=== PATIENT | male | born 1980 | race American Indian/Alaskan Native ===

== ENCOUNTER 2016-05-03 04:22 | Emergency (ER) | payer SELFPAY ==
[2016-05-03] MEDS ORDERED: NACL 0.9% 1000 ML 1,000 ML IV ONE (05:01)
[2016-05-03] MEDS ORDERED: DIPRIVAN 10 MG/ML IV ONE ×3 (05:01→06:00)
[2016-05-03] MEDS ORDERED: DIPRIVAN 10 MG/ML 1,000 MG/100 ML BOTTLE IV ONE (05:02)
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
[2016-05-03 06:25] VITALS: BP 125/75
--- NOTE | 2016-05-03 09:45 | XRay Report ---
Left shoulder single view: History: Postreduction. Findings: There is normal alignment noted of the humeral head with glenoid. A.c. joint grossly appears unremarkable. Ossification is noted at the superior aspect of distal end of the clavicle probably related to old injury. Impression: Stable alignment. No acute fracture.
--- NOTE | 2016-05-03 09:46 | XRay Report ---
Left shoulder single view: History: Injury. Next Findings: There is anterior dislocation noted of left shoulder with humeral head lying anteroinferior to the glenoid. No fracture. Impression: Anterior shoulder dislocation.
== END 2016-05-03 06:36 | disposition home or self-care (01) ==
LOC: ED 04:22
DX: S43.005A Unspecified dislocation of left shoulder joint, initial encounter (principal); F17.200 Nicotine dependence, unspecified, uncomplicated; X58.XXXA Exposure to other specified factors, initial encounter; Y93.89 Activity, other specified; Y99.9 Unspecified external cause status; Y92.89 Other specified places as the place of occurrence of the external cause
CPT/HCPCS: 23655; 73020; 73030; 96361; 96374; 99285; J2704; J7030

== ENCOUNTER 2016-05-11 06:47 | Emergency (ER) | payer OTHER ==
[2016-05-11] MEDS ORDERED: AMIDATE IV ONE (08:11)
[2016-05-11] MEDS ORDERED: ZOFRAN IV PRN (08:13)
[2016-05-11] MEDS ORDERED: SUBLIMAZE IV PRN (08:13)
[2016-05-11] MEDS ORDERED: TORADOL IV ONE (08:13)
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
--- NOTE | 2016-05-11 09:01 | XRay Report ---
Left shoulder single view: History: Post reduction. Findings: There is satisfactory alignment noted of humeral head with the glenoid. No dislocation or fracture. Impression: No evidence of acute fracture.
--- NOTE | 2016-05-11 09:11 | XRay Report ---
Left shoulder single view: History: Left shoulder dislocation. Findings: Anterior dislocation noted at left shoulder. The humeral head is anteroinferior to the glenoid . No fracture. Impression: Anterior dislocation left shoulder. Impression
[2016-05-11] MEDS ORDERED: NORVASC ONE (09:31)
[2016-05-11] MEDS ORDERED: NORVASC PO ONE (09:34)
[2016-05-11 09:48] VITALS: BP 155/104
== END 2016-05-11 09:49 | disposition home or self-care (01) ==
LOC: ED 06:47
DX: S43.015A Anterior dislocation of left humerus, initial encounter (principal); F17.210 Nicotine dependence, cigarettes, uncomplicated; X58.XXXA Exposure to other specified factors, initial encounter; Y93.89 Activity, other specified; Y99.9 Unspecified external cause status; Y92.89 Other specified places as the place of occurrence of the external cause
CPT/HCPCS: 23655; 73020; 73030; 96374; 96375; 99284; J1885; J2405; J3010

== ENCOUNTER 2016-08-30 18:12 | Emergency (ER) | payer SELFPAY ==
[2016-08-30 18:47] VITALS: BP 130/91
--- NOTE | 2016-08-30 21:45 | Emergency Department Report ---
ED General Adult HPI - General Chief complaint: Eye Problems Stated complaint: RT EYE PAIN/ RED Time Seen by Provider: 08/30/16 21:12 Source: patient Mode of arrival: Ambulatory Limitations: No Limitations - History of Present Illness Initial comments: Patient comes into the ER today with complaints of right eye irritation and redness since yesterday. Patient hilariahe is been having a lot of sinus congestion on the right side as well for the past 3-4 days. Patient states that he did take some [id number]-rsx-[id number] sinus medicine and states that it did help with the pressure in his head and his head no longer hurts. Patient denies any injury to his eye. Denies any foreign body sensation. - Related Data Previous Rx's Medication Instructions Recorded Last Taken Type Amoxicillin 1,000 mg PO BID #40 capsule 08/30/16 Unknown Rx Polymyxin B Sulf/Trimethoprim 2 drop OP TID #10 ml 08/30/16 Unknown Rx [Polytrim Eye Drops [id number]/0.1%] predniSONE [Deltasone] 60 mg PO QDAY #15 tab 08/30/16 Unknown Rx Allergies Allergy/AdvReac Type Severity Reaction Status Date / Time No Known Allergies Allergy Verified 08/30/16 18:40 ED Review of Systems ROS: Stated complaint: RT EYE PAIN/ RED Other details as noted in HPI Constitutional: denies: chills, fever Eyes: eye pain, eye discharge. denies: vision change ENT: congestion. denies: ear pain, throat pain, dental pain, hearing loss, epistaxis Respiratory: denies: cough, shortness of breath, wheezing Cardiovascular: denies: chest pain, palpitations Endocrine: no symptoms reported Gastrointestinal: denies: abdominal pain, nausea, diarrhea Genitourinary: denies: urgency, dysuria Musculoskeletal: denies: back pain, joint swelling, arthralgia Skin: denies: rash, lesions Neurological: denies: headache, weakness, paresthesias Psychiatric: denies: anxiety, depression Hematological/Lymphatic: denies: easy bleeding, easy bruising ED Past Medical Hx - Past Medical History Additional medical history: Shoulder dislocation with reduction - Surgical History Hx Appendectomy: Yes - Social History Smoking Status: Current Every Day Smoker Substance Use Type: Alcohol - Medications Home Medications: Home Medications Medication Instructions Recorded Confirmed Last Taken Type Amoxicillin 1,000 mg PO BID #40 capsule 08/30/16 Unknown Rx Polymyxin B Sulf/Trimethoprim 2 drop OP TID #10 ml 08/30/16 Unknown Rx [Polytrim Eye Drops [id number]/0.1%] predniSONE [Deltasone] 60 mg PO QDAY #15 tab 08/30/16 Unknown Rx ED Physical Exam - General Limitations: No Limitations General appearance: alert, in no apparent distress - Head Head exam: Present: atraumatic, normocephalic - Eye Eye exam: Present: PERRL, EOMI, conjunctival injection (right eye). Absent: periorbital swelling, periorbital tenderness Pupils: Present: normal accommodation - ENT ENT exam: Present: normal orophraynx, mucous membranes moist, TM's normal bilaterally, normal external ear exam, other (right greater than left nasal mucosa redness and turbinate swelling) - Neck Neck exam: Present: normal inspection. Absent: tenderness, full ROM, lymphadenopathy - Respiratory Respiratory exam: Present: normal lung sounds bilaterally. Absent: respiratory distress, chest wall tenderness, decreased breath sounds - Cardiovascular Cardiovascular Exam: Present: regular rate, normal rhythm, normal heart sounds. Absent: systolic murmur, diastolic murmur, rubs, gallop - GI/Abdominal GI/Abdominal exam: Present: soft, normal bowel sounds - Rectal Rectal exam: Present: deferred - Extremities Exam Extremities exam: Present: normal inspection, normal capillary refill. Absent: pedal edema - Back Exam Back exam: Present: normal inspection - Neurological Exam Neurological exam: Present: alert, oriented X3, CN II-XII intact - Psychiatric Psychiatric exam: Present: normal affect, normal mood - Skin Skin exam: Present: warm, dry, intact, normal color. Absent: rash ED Course Vital Signs 08/30/16 18:41 Temperature 99.0 F Pulse Rate 84 Respiratory 17 Rate Blood Pressure 130/91 O2 Sat by Pulse 98 Oximetry ED Medical Decision Making - Medical Decision Making Patient is nontoxic and hemodynamically stable. No foreign bodies visualized on patient's eye exam. I believe patient originally started with a sinus infection that has settled into his right eye. I will start patient on eye drops accordingly. Patient is in agreement with treatment plan patient stable for discharge. Critical care attestation.: If time is entered above; I have spent that time in minutes in the direct care of this critically ill patient, excluding procedure time. ED Disposition Clinical Impression: Conjunctivitis, Sinusitis Disposition: DC- TO HOME OR SELFCARE Is pt being admited?: No Does the pt Need Aspirin: No Condition: Good Instructions: Conjunctivitis (ED), Sinusitis (ED) Prescriptions: Amoxicillin 1,000 mg PO BID #40 capsule Polymyxin B Sulf/Trimethoprim [Polytrim Eye Drops [id number]/0.1%] 2 drop OP TID #10 ml predniSONE [Deltasone] 60 mg PO QDAY #15 tab Referrals: PRIMARY CARE, [Primary Care Provider] - 3-5 Days Time of Disposition: 21:46
== END 2016-08-30 21:51 | disposition home or self-care (01) ==
LOC: ED 18:12
DX: J32.9 Chronic sinusitis, unspecified (principal); H10.9 Unspecified conjunctivitis; F17.200 Nicotine dependence, unspecified, uncomplicated

== ENCOUNTER 2018-05-16 10:17 | Emergency (ER) | payer OTHER ==
--- NOTE | 2018-05-16 12:35 | Emergency Department Report ---
ED General Adult HPI - General Chief complaint: Eye Problems Stated complaint: LT EYE SWOLLEN/PAIN Time Seen by Provider: 05/16/18 12:27 Source: patient Mode of arrival: Ambulatory Limitations: No Limitations - History of Present Illness Initial comments: Patient is 37-year-old male past medical history of sinus infection who presents with eye pain meds been going on for the last 2 days. He states that this always occurs when he has sinus infection. He states that his nose and that he will have left eye pain and redness. Patient states that his eye pain is an 8/10 it is an achy type of pain light makes it worse and darkness makes it better. Severity scale (0 -10): 4 - Related Data Previous Rx's Medication Instructions Recorded Last Taken Type Polymyxin B Sulf/Trimethoprim 2 drop OP TID #10 ml 08/30/16 Unknown Rx [Polytrim Eye Drops [id number]/0.1%] predniSONE [Deltasone] 60 mg PO QDAY #15 tab 08/30/16 Unknown Rx Amoxicillin 1,000 mg PO BID #40 capsule 05/16/18 Unknown Rx Olopatadine HCl [Pataday] 2.5 ml OP Q6H #1 bottle 05/16/18 Unknown Rx Oxymetazoline 0.05% [Afrin] 2 spray NS Q6H #1 bottle 05/16/18 Unknown Rx Allergies Allergy/AdvReac Type Severity Reaction Status Date / Time No Known Allergies Allergy Verified 08/30/16 18:40 ED Review of Systems ROS: Stated complaint: LT EYE SWOLLEN/PAIN Other details as noted in HPI Constitutional: denies: chills, fever Eyes: eye pain. denies: eye discharge, vision change ENT: denies: ear pain, throat pain Respiratory: denies: cough, shortness of breath, wheezing Cardiovascular: denies: chest pain, palpitations Endocrine: no symptoms reported Gastrointestinal: denies: abdominal pain, nausea, diarrhea Genitourinary: denies: urgency, dysuria Musculoskeletal: denies: back pain, joint swelling, arthralgia Skin: denies: rash, lesions Neurological: denies: headache, weakness, paresthesias Psychiatric: denies: anxiety, depression Hematological/Lymphatic: denies: easy bleeding, easy bruising ED Past Medical Hx - Past Medical History Additional medical history: Shoulder dislocation with reduction - Surgical History Past Surgical History?: No Hx Appendectomy: Yes - Social History Smoking Status: Current Every Day Smoker Substance Use Type: Alcohol - Medications Home Medications: Home Medications Medication Instructions Recorded Confirmed Last Taken Type Polymyxin B Sulf/Trimethoprim 2 drop OP TID #10 ml 08/30/16 Unknown Rx [Polytrim Eye Drops [id number]/0.1%] predniSONE [Deltasone] 60 mg PO QDAY #15 tab 08/30/16 Unknown Rx Amoxicillin 1,000 mg PO BID #40 capsule 05/16/18 Unknown Rx Olopatadine HCl [Pataday] 2.5 ml OP Q6H #1 bottle 05/16/18 Unknown Rx Oxymetazoline 0.05% [Afrin] 2 spray NS Q6H #1 bottle 05/16/18 Unknown Rx ED Physical Exam - General Limitations: No Limitations General appearance: alert, in no apparent distress - Head Head exam: Present: atraumatic, normocephalic - Eye Eye exam: Present: normal appearance, conjunctival injection (left eye) - ENT ENT exam: Present: mucous membranes moist - Neck Neck exam: Present: normal inspection - Respiratory Respiratory exam: Present: normal lung sounds bilaterally. Absent: respiratory distress - Cardiovascular Cardiovascular Exam: Present: regular rate, normal rhythm. Absent: systolic murmur, diastolic murmur, rubs, gallop - GI/Abdominal GI/Abdominal exam: Present: soft, normal bowel sounds - Rectal Rectal exam: Present: deferred - Extremities Exam Extremities exam: Present: normal inspection - Back Exam Back exam: Present: normal inspection - Neurological Exam Neurological exam: Present: alert, oriented X3 - Psychiatric Psychiatric exam: Present: normal affect, normal mood - Skin Skin exam: Present: warm, dry, intact, normal color. Absent: rash ED Course Vital Signs 05/16/18 10:45 Temperature 98.6 F Pulse Rate 82 Respiratory 18 Rate Blood Pressure 128/93 [Right] O2 Sat by Pulse 99 Oximetry ED Medical Decision Making - Medical Decision Making Cdx: allergic conjunctivitis ddx: foriegn body sinusitis, seasonal allergic pain I will give flouroscein stain and slit lamp. Critical care attestation.: If time is entered above; I have spent that time in minutes in the direct care of this critically ill patient, excluding procedure time. ED Disposition Clinical Impression: Allergic conjunctivitis of left eye Disposition: DC-01 TO HOME OR SELFCARE Is pt being admited?: No Does the pt Need Aspirin: No Condition: Stable Instructions: Conjunctivitis (ED), Allergic Rhinitis (ED) Prescriptions: Oxymetazoline 0.05% [Afrin] 2 spray NS Q6H #1 bottle Amoxicillin 1,000 mg PO BID #40 capsule Olopatadine HCl [Pataday] 2.5 ml OP Q6H #1 bottle Referrals: ALONZO GUEVARA MD [Staff Physician] - 3-5 Days COOPER HUDDLESTON MD [Staff Physician] - 3-5 Days TANESHA NIXON MD [Referring] - 3-5 Days
[2018-05-16] MEDS ORDERED: TETRACAINE 0.5% OU STA (12:44)
[2018-05-16] MEDS ORDERED: FUL-GLO OP ONE (12:45)
[2018-05-16 13:47] VITALS: BP 142/64
== END 2018-05-16 13:45 | disposition home or self-care (01) ==
LOC: ED 10:17
DX: H10.12 Acute atopic conjunctivitis, left eye (principal); F17.200 Nicotine dependence, unspecified, uncomplicated; Z90.89 Acquired absence of other organs
CPT/HCPCS: 99282